=== PATIENT | male | born 1940 | race Asian ===

== ENCOUNTER 2017-10-03 09:25 | Emergency (ER) | payer OTHER ==
[~2017-10-03] VITALS: Ht 172.7 cm; Wt 79.4 kg
[2017-10-03 10:10] LABS: POTASSIUM 4.7 mmol/L (3.6-5.2)
[2017-10-03 10:15] LABS: PLATELET COUNT 209 K/uL (142-355)
[2017-10-03 12:30] VITALS: BP 176/58; TEMP 98.6
== END 2017-10-03 12:45 | disposition home or self-care (01) ==
LOC: ED 09:25
DX: M79.604 Pain in right leg (principal); D64.9 Anemia, unspecified; R68.89 Other general symptoms and signs
CPT/HCPCS: 80053; 85027; 85379; 99283